=== PATIENT | female | born 1985 | race Caucasian/White ===

== ENCOUNTER 2017-07-21 11:06 | Emergency (ER) | payer MEDICAID ==
[~2017-07-21] VITALS: Ht 160 cm; Wt 76.0 kg
[~2017-07-21 11:06] MED LIST: AFRIN NS; CEPH-571 PO; CYCL-1 PO
[2017-07-21] MEDS ORDERED: BUPIVAcaine/PF 2.5 mg/ml (0.25%) 30ml vial IJ ONE (12:20)
[2017-07-21] MEDS ORDERED: CLIN-80 PO ×2 (12:59→13:03)
[2017-07-21 13:17] VITALS: BP 123/73
== END 2017-07-21 13:18 | disposition home or self-care (01) ==
LOC: ER 11:06
DX: L02.411 Cutaneous abscess of right axilla (principal); Z56.0 Unemployment, unspecified; Z88.0 Allergy status to penicillin; Z79.899 Other long term (current) drug therapy
CPT/HCPCS: 10060; 99283; A6266; A6449; J3490

== ENCOUNTER 2017-12-18 13:24 | Emergency (ER) | payer MEDICAID ==
[~2017-12-18] VITALS: Ht 160 cm; Wt 72.0 kg
[~2017-12-18 13:24] MED LIST changes: +CLIN300C85 PO
[2017-12-18 14:00] VITALS: BP 108/82
== END 2017-12-18 14:49 | disposition left against medical advice (07) ==
LOC: ER 13:25
DX: L03.115 Cellulitis of right lower limb (principal); L08.9 Local infection of the skin and subcutaneous tissue, unspecified; F17.200 Nicotine dependence, unspecified, uncomplicated; Z56.0 Unemployment, unspecified; Z88.0 Allergy status to penicillin
CPT/HCPCS: 99281

== ENCOUNTER 2018-10-18 22:51 | Emergency (ER) | payer MEDICAID ==
[~2018-10-18] VITALS: Ht 160 cm; Wt 72.7 kg
[~2018-10-18 22:51] MED LIST changes: +CLIN-96 PO; -CLIN300C85 PO
[2018-10-19] MEDS ORDERED: LIDOcaine 1% w/epiNEPHrine 1:200,000 30ml vial IM ONE (00:15)
[2018-10-19] MEDS ORDERED: IBUP-1984 PO (00:15)
[2018-10-19 00:31] VITALS: BP 154/68
== END 2018-10-19 00:34 | disposition home or self-care (01) ==
LOC: ER 22:51
DX: S02.5XXA Fracture of tooth (traumatic), initial encounter for closed fracture (principal); F17.200 Nicotine dependence, unspecified, uncomplicated; Z88.0 Allergy status to penicillin; Z79.2 Long term (current) use of antibiotics; Z79.899 Other long term (current) drug therapy; Z56.0 Unemployment, unspecified; X58.XXXA Exposure to other specified factors, initial encounter; Y93.89 Activity, other specified; Y92.89 Other specified places as the place of occurrence of the external cause; Y99.8 Other external cause status
CPT/HCPCS: 64400; 99284; J3490

== ENCOUNTER 2020-05-15 12:47 | Emergency (ER) | payer MEDICAID ==
[~2020-05-15] VITALS: Ht 160 cm; Wt 91.2 kg
[~2020-05-15 12:47] MED LIST changes: -CLIN-96 PO; +CLIN-97 PO
[2020-05-15 13:10] VITALS: BP 136/82
== END 2020-05-15 15:15 | disposition left against medical advice (07) ==
LOC: ER 12:48
DX: R10.31 Right lower quadrant pain (principal); Z53.21 Procedure and treatment not carried out due to patient leaving prior to being seen by health care provider

== ENCOUNTER 2021-02-19 19:01 | Emergency (ER) | payer MEDICAID ==
[~2021-02-19] VITALS: Ht 160 cm; Wt 79.5 kg
[2021-02-19] MEDS ORDERED: dexamethasone sod phosphate 10mg/ml inj IM STA (19:33)
[2021-02-19] MEDS ORDERED: LORazepam 1 MG tablet PO ONE (19:35)
[2021-02-19] MEDS ORDERED: diphenhydrAMINE 50 mg/ml inj IM ONE (19:35)
[2021-02-19 20:36] VITALS: BP 136/89
== END 2021-02-19 20:38 | disposition home or self-care (01) ==
LOC: ER 19:02
DX: T78.40XA Allergy, unspecified, initial encounter (principal); F17.210 Nicotine dependence, cigarettes, uncomplicated; Z56.0 Unemployment, unspecified; Z88.0 Allergy status to penicillin; Z79.899 Other long term (current) drug therapy
CPT/HCPCS: 96372; 99284; J1100; J1200

== ENCOUNTER 2023-05-02 16:12 | Emergency (ER) | payer MEDICAID ==
[~2023-05-02] VITALS: Ht 160 cm; Wt 97.2 kg
[2023-05-02] MEDS ORDERED: bacitracin 15gm ointment TP ONE (17:25)
[2023-05-02] MEDS ORDERED: TETanus/Pertussis (Acell)/Diphther VAC/PF (Tdap-Adult) 0.5ml syringe IMVAC ONE (17:25)
[2023-05-02] MEDS ORDERED: LIDOcaine 1% W/epiNEPHrine 1:100,000 20ml vial SQ ONE (17:45)
[2023-05-02] MEDS ORDERED: LIDOCAINE 1%/EPI 1:100,000 inj. 10 ML multi-dose vial SQ ONE (17:45)
[2023-05-02 19:06] VITALS: BP 178/118; PULSE 102; RESP 18; TEMP 98.2; O2SAT 99
== END 2023-05-02 19:10 | disposition home or self-care (01) ==
LOC: ER 16:12
DX: S61.412A Laceration without foreign body of left hand, initial encounter (principal); Z88.0 Allergy status to penicillin; Z79.899 Other long term (current) drug therapy; X58.XXXA Exposure to other specified factors, initial encounter; Y93.89 Activity, other specified; Y92.89 Other specified places as the place of occurrence of the external cause; Y99.8 Other external cause status
CPT/HCPCS: 12002; 73130; 99283; J3490; J7030; 99282; A6449